=== PATIENT | male | born 1970 | race American Indian/Alaskan Native ===

== ENCOUNTER 2020-06-27 11:11 | Outpatient (CLI) | payer MEDICARE ==
[2020-06-27 12:16] LABS: Alanine Aminotransferase 54 units/L (7-56); Albumin 4.6 g/dL (3.9-5); BUN/Creatinine Ratio 30; Blood Urea Nitrogen 15 mg/dL (9-20); Calcium 9.2 mg/dL (8.4-10.2); Hemolysis Index 6
== END 2020-06-27 11:12 | disposition home or self-care (01) ==
LOC: LAB 11:11
PROVIDERS: ATTEND Internal Medicine
DX: R94.5 Abnormal results of liver function studies (principal)
CPT/HCPCS: 36415; 80053

== ENCOUNTER 2020-12-30 12:56 | Outpatient (CLI) | payer MEDICARE ==
[2020-12-30 13:43] LABS: Alanine Aminotransferase 57 units/L (7-56); Albumin 4.6 g/dL (3.9-5)
[2020-12-30 13:46] LABS: Bilirubin,Direct < 0.2 mg/dL (0-0.2)
== END 2020-12-30 12:57 | disposition home or self-care (01) ==
LOC: LAB 12:56
PROVIDERS: ATTEND Internal Medicine
DX: R94.5 Abnormal results of liver function studies (principal)
CPT/HCPCS: 36415; 80076

== ENCOUNTER 2021-01-17 10:50 | Outpatient (CLI) | payer MEDICARE ==
--- NOTE | 2021-01-17 12:13 | XRay Report ---
CHEST 2 VIEWS INDICATION: PNEUMONIA,UNSPECIFIED ORGANISM. COMPARISON: None FINDINGS: Support devices: None. Heart: Within normal limits. Lungs/pleura: No acute air space or interstitial disease. No pleural effusion or pneumothorax. Additional findings: None. IMPRESSION: Unremarkable chest films. No evidence for pneumonia. Signer Name: Grady Escoto Jr, MD Signed: 01/17/2021 12:09 PM Workstation Name: [id number]
== END 2021-01-17 10:51 | disposition home or self-care (01) ==
LOC: XRAY 10:50
PROVIDERS: ATTEND Internal Medicine
DX: J18.9 Pneumonia, unspecified organism (principal)
CPT/HCPCS: 71046

== ENCOUNTER 2021-05-08 11:10 | Outpatient (CLI) | payer MEDICARE ==
[2021-05-08 11:45] LABS: Bilirubin,Urine NEG (Negative); Blood,Urine NEG (Negative); Color,Urine Straw (Yellow); Protein,Urine <15 mg/dL mg/dL (Negative)
[2021-05-08 11:46] LABS: Basophils % (Auto) 0.4 % (0.0-1.8); Eosinophils # (Auto) 0.1 K/mm3 (0.0-0.4); Eosinophils % (Auto) 0.6 % (0.0-4.3); Hematocrit 46.5 % (35.5-45.6); Hemoglobin 15.1 gm/dl (11.8-15.2); Lymphocytes % (Auto) 23.2 % (13.4-35.0); Mean Corpuscular HGB Conc 33 % (32-34); Mean Corpuscular Volume 84 fl (84-94); Monocytes # (Auto) 0.5 K/mm3 (0.0-0.8); Platelet Count 244 K/mm3 (140-440); Red Blood Count 5.52 M/mm3 (3.65-5.03); Red Cell Distribution Width 14.2 % (13.2-15.2)
[2021-05-08 12:14] LABS: Alanine Aminotransferase 92 units/L (7-56); Blood Urea Nitrogen 11 mg/dL (9-20); Calcium 9.7 mg/dL (8.4-10.2); Chol/HDL Ratio 3.81 %; HDL Cholesterol 44 mg/dL (40-59); Hemolysis Index 3; LDL Cholesterol,Direct 123 mg/dL (50-130)
[2021-05-08 12:16] LABS: BUN/Creatinine Ratio 37
[2021-05-11 13:09] LABS: Vitamin D, 25-OH, D2 <4 ng/mL
== END 2021-05-08 11:11 | disposition home or self-care (01) ==
LOC: LAB 11:10
PROVIDERS: ATTEND Internal Medicine
DX: I10 Essential (primary) hypertension (principal); R94.5 Abnormal results of liver function studies; R53.83 Other fatigue; E78.5 Hyperlipidemia, unspecified; Z00.00 Encounter for general adult medical examination without abnormal findings; R73.9 Hyperglycemia, unspecified; W57.XXXA Bitten or stung by nonvenomous insect and other nonvenomous arthropods, initial encounter
CPT/HCPCS: 36415; 80053; 80061; 81001; 82306; 83036; 84443; 85025